=== PATIENT | female | born 1960 | race Hispanic/Latino ===

== ENCOUNTER 2016-06-21 20:33 | Inpatient (IN) | payer MEDICAID ==
[2016-06-21 20:38] VITALS: BMI 26.1
[2016-06-21] MEDS ORDERED: Naloxone 0.4 mg/ml Inj (Adult) ONE (20:49)
[2016-06-21] MEDS ORDERED: Naloxone 0.4 mg/ml Inj (Adult) IV PRN (20:51)
[2016-06-21 21:01] LABS: ABG ALLEN TEST YES; ARTERIAL BLOOD GAS HCO3 25.2 mmol/L (21-28); ARTERIAL BLOOD GAS MODE NC; ARTERIAL BLOOD GAS PH 7.45 (7.35-7.45); ARTERIAL BLOOD GAS PO2 109 mm/Hg (80-100)
[2016-06-21 21:10] LABS: BASO # 0.1 K/uL (0.0-0.2); BASO % 0.7 % (0.0-2.0); EOS # 0.2 K/uL (0.0-0.7); EOS % 2.1 % (0.0-4.0); HEMATOCRIT 42.7 % (34.0-47.0); LYMPH # 3.8 K/uL (1.0-4.3); LYMPH % 43.1 % (20.0-40.0); MEAN CELL VOLUME 98.3 fl (81.0-99.0); MEAN CORPUSCULAR HEMOGLOBIN 33.9 pg (27.0-31.0); MEAN CORPUSCULAR HGB CONC 34.5 g/dL (33.0-37.0); MEAN PLATELET VOLUME 8.6 fl (7.2-11.7); MONO # 0.8 K/uL (0.0-0.8); MONO % 9.5 % (0.0-10.0); NEUT # 3.9 K/uL (1.8-7.0); NEUT % 44.6 % (50.0-75.0); NRBC % 0.1 % (0.0-0.0); RED CELL DISTRIBUTION WIDTH 14.2 % (11.5-14.5); WHITE BLOOD COUNT 8.7 K/uL (4.8-10.8)
[2016-06-21 21:24] LABS: ALB/GLOB RATIO 1.4 (1.0-2.1); ALCOHOL SERUM < 10 mg/dl (0-10); ALKALINE PHOSPHATASE 62 U/L (38-126); ALT/SGPT 33 U/L (9-52); AST/SGOT 26 U/L (14-36); BILIRUBIN,TOTAL 0.7 mg/dl (0.2-1.3); BLOOD UREA NITROGEN 17 mg/dl (7-17); CARBON DIOXIDE 22 mmol/L (22-30); CHLORIDE 104 mmol/L (98-107); GFR AFRICAN-AMERICAN > 60; GLUCOSE,RANDOM 97 mg/dL (65-105); LIPASE 165 U/L (23-300); MAGNESIUM 2.1 MG/DL (1.6-2.3); POTASSIUM 3.3 MMOL/L (3.6-5.0); SODIUM 138 mmol/l (132-148); TOTAL PROTEIN 7.1 G/DL (6.3-8.2)
[2016-06-21 21:25] LABS: PARTIAL THROMBOPLASTIN TIME 26.8 SECONDS (23.3-32.5)
[2016-06-21 21:54] LABS: RBC URINE 1 /hpf (0-3); URINE BILIRUBIN NEGATIVE (NEGATIVE); URINE BLOOD NEGATIVE (NEGATIVE); URINE COLOR YELLOW (YELLOW); URINE GLUCOSE (UA) NEG (Normal); URINE KETONE NEGATIVE (NEGATIVE); URINE LEUKOCYTE ESTERASE NEG Leu/uL (Negative); URINE PROTEIN NEGATIVE (NEGATIVE); URINE UROBILINOGEN 0.2-1.0 mg/dL (0.2-1.0); WBC URINE 2 /hpf (0-5)
--- NOTE | 2016-06-21 21:58 | ED PDOC ---
HPI: Psych/Substance Abuse Time Seen by Provider: 06/21/16 20:38 Chief Complaint (Nursing): Substance Abuse Chief Complaint (Provider): Overdose History Per: Patient, Family (patient's daughter) Current Symptoms Are (Timing): Still Present Additional Complaint(s): 20:38 Cassidy Naranjo is a 56 year old female with a history of depression that presents to the ED after intentionally ingesting 15 tablets of 325/10 Percocet, as well as 10 tablets of Flexeril of unknown dose. Patient states that she ingested the pills because she "wanted to sleep," but her daughter reports that this was a suicide attempt, because earlier today, the patient was supposed to meet her online boyfriend and he told her he wasn't showing up. Patient's daughter also reports that the patient has a similar suicide attempt 8 years ago when an ex-boyfriend broke up with her. Patient denies any alcohol, drug use , or hallucinations. She is sleepy but conversive, and states that she feels very thirsty. Past Medical History Reviewed: Historical Data, Nursing Documentation, Vital Signs Vital Signs: Last Vital Signs Temp 98.4 F 06/21/16 20:44 Pulse 80 06/21/16 20:44 Resp 16 06/21/16 20:44 BP 145/75 06/21/16 20:44 Pulse Ox 100 06/21/16 20:44 - Medical History PMH: Arthritis Denies: Chronic Kidney Disease - Surgical History Surgical History: Appendectomy, Cholecystectomy, - Family History Family History: States: Unknown Family Hx - Immunization History Hx Tetanus Toxoid Vaccination: No Hx Influenza Vaccination: No Hx Pneumococcal Vaccination: No - Home Medications Home Medications: Ambulatory Orders Medication Instructions Recorded oxyCODONE/Acetaminophen [Percocet 1 tab PO QID PRN #15 tab 05/17/13 5/325 mg Tab] Ergocalciferol [Vitamin D] 1 tab PO QWK 09/16/14 oxyCODONE/Acetaminophen [Percocet 1 ea PO Q6 #15 tab 12/18/14 5/325 mg Tab] - Allergies Allergies/Adverse Reactions: Allergies Allergy/AdvReac Type Severity Reaction Status Date / Time No Known Allergies Allergy Verified 09/16/14 09:23 Review of Systems ROS Statement: Except As Marked, All Systems Reviewed And Found Negative ( however it may be unreliable due to intoxication with sedatives) Constitutional: Positive for: Other (Thirst) Gastrointestinal: Positive for: Nausea. Negative for: Vomiting, Abdominal Pain Neurological: Positive for: Dizziness. Negative for: Numbness Psych: Positive for: Anxiety, Depression, Suicidal ideation Physical Exam - Reviewed Nursing Documentation Reviewed: Yes Vital Signs Reviewed: Yes - Physical Exam Appears: Positive for: No Acute Distress (sleepy, but easily arouable) Head Exam: Positive for: ATRAUMATIC, NORMOCEPHALIC Skin: Positive for: Warm, Dry Eye Exam: Positive for: EOMI, PERRL ENT: Positive for: Pharynx Is (clear), Other (very dry mucous membranes) Neck: Positive for: Painless ROM, Supple Cardiovascular/Chest: Negative for: Regular Rate, Rhythm (heart rate is irregular; rate is bigeminy), Murmur Respiratory: Negative for: Normal Breath Sounds (lungs clear, but shallow breath sounds), Wheezing Gastrointestinal/Abdominal: Positive for: Soft. Negative for: Tenderness, Distended, Guarding Back: Positive for: Normal Inspection. Negative for: Vertebral Tenderness Extremity: Positive for: Normal ROM. Negative for: Pedal Edema Lymphatic: Negative for: Adenopathy Neurologic/Psych: Positive for: Alert (sleepy but easily arousable, conversive) , Oriented, Other (speech is slightly slurred). Negative for: Motor/Sensory Deficits - Laboratory Results Result Diagrams: 06/22/16 05:00 06/22/16 05:00 - ECG O2 Sat by Pulse Oximetry: 100 (RA) Pulse Ox Interpretation: Normal - Radiology X-Ray: Interpreted by Me X-Ray Interpretation: No Acute Disease - Critical Care Total Time (In Min): 30 Documented Critical Care: Time excludes all time spent performint seperately billable procedures Medical Decision Making Medical Decision Makin:38 Initial Impression: Overdose of Acetaminophen, Opioid, and Sedative Initial Plan: * Type and Screen * EKG * Chest X-Ray * Urine Drug Screen * Urinalysis * Glucose, Blood, POC * Adams Catheter * Vital Signs * Potassium Chloride 100 mL * Narcan 0.4 mg IV * Reevaluation Initial EKG demonstrated sinus with frequent PVCs in bigeminy, but then Discussed with [facility]ison Control, patient will be observed on monitor and acetaminophen bp recommended four hours post-ingestion. Small amount of Narcan as needed for respiratory depression. 21:10 Labs unremarkable except for acetaminophen of 59 and low potassium. Will call Dr Ross to admit to medical service. Scribe Attestation: Documented by Clarissa Valenzuela, acting as a scribe for Priscilla Bosch MD. Provider Scribe Attestation: All medical record entries made by the Scribe were at my direction and personally dictated by me. I have reviewed the chart and agree that the record accurately reflects my personal performance of the history, physical exam, medical decision making, and the department course for this patient. I have also personally directed, reviewed, and agree with the discharge instructions and disposition. Disposition - Clinical Impression Clinical Impression: Acetaminophen overdose, Sedative overdose, Depression - Disposition Disposition Time: 20:45 Condition: FAIR - Pt Status Changed To: Hospital Disposition Of: Inpatient - Admit Certification Admit to Inpatient:: After my assessment, the patient will require hospitalization for at least two midnights. This is because of the severity of symptoms shown, intensity of services needed, and/or the medical risk in this patient being treated as an outpatient. - POA Present On Arrival: None
[2016-06-21] MEDS: Potassium CL 10mEq/100ml 100 ML IVPB SCH (22:26)
[2016-06-22] MEDS: Potassium CL 10mEq/100ml 100 ML IVPB SCH (01:39)
[2016-06-22 07:06] LABS: HEMATOCRIT 39.7 % (34.0-47.0); MEAN CELL VOLUME 100.1 fl (81.0-99.0); MEAN CORPUSCULAR HEMOGLOBIN 33.9 pg (27.0-31.0); MEAN CORPUSCULAR HGB CONC 33.8 g/dL (33.0-37.0); RED CELL DISTRIBUTION WIDTH 14.6 % (11.5-14.5); WHITE BLOOD COUNT 6.8 K/uL (4.8-10.8)
--- NOTE | 2016-06-22 07:06 | RAD ---
HISTORY: overdose COMPARISON: No prior. FINDINGS: LUNGS: No active pulmonary disease. PLEURA: No significant pleural effusion identified, no pneumothorax apparent. CARDIOVASCULAR: Normal. OSSEOUS STRUCTURES: No significant abnormalities. VISUALIZED UPPER ABDOMEN: Normal. OTHER FINDINGS: None. IMPRESSION: No active disease.
[2016-06-22 08:00] LABS: ALB/GLOB RATIO 1.3 (1.0-2.1); ALKALINE PHOSPHATASE 55 U/L (38-126); ALT/SGPT 35 U/L (9-52); AST/SGOT 67 U/L (14-36); BILIRUBIN,TOTAL 0.6 mg/dl (0.2-1.3); BLOOD UREA NITROGEN 12 mg/dl (7-17); CALCIUM 8.6 mg/dL (8.4-10.2); CARBON DIOXIDE 23 mmol/L (22-30); CHLORIDE 110 mmol/L (98-107); GFR AFRICAN-AMERICAN > 60; GLUCOSE,RANDOM 81 mg/dL (65-105); POTASSIUM 3.9 MMOL/L (3.6-5.0); SODIUM 141 mmol/l (132-148); TOTAL PROTEIN 5.9 G/DL (6.3-8.2)
--- NOTE | 2016-06-22 11:21 | CARD ---
APPROVED REPORT EKG Measurement Heart [id number] <Conclusion> Sinus rhythm with frequent premature ventricular complexes in a pattern of bigeminy Otherwise normal ECG
--- NOTE | 2016-06-22 13:23 | CP.PCM.CON ---
History of Present Illness - History of Present Illness History of Present Illness: psychiatry consult ordered by dr kuhn/darius reason: suicide attempt cc: i am embarrased and will never do it again hpi: pt reports no psychiatric history or treatment. she reports she made "a stupid decision" after a conflict with an online bf she had never meet- apparently he was supposed to meet her and didn't. pt took her percocet she is prescribed for her torn meniscus. she states wanted to in that moment and then changed her mind and got scared. she called her daughter who called to have pt brought to hospital. pt denies leaving a note. states she does not want to kill herself. states she has not been depressed. states she works, goes to the gym and is close to her family. she is willing to accept outpatient treatment. she is willing to stay in medical hospital for medical treatment. she does not want to sign into inpt treatment. 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 went to detox/ rehab and has been sober. states she has the percocet for knee injury. she denies use of alcohol or other illicit substances. smokes 20 cigarettes daily. social: born and raised in [facility]. has a 33 yo daughter who lives nearby. she was never . denies any physical/sexual abuse. 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 medical: knee injury, sp tylenol od mse: alert, oriented x 3. mood is anxious. affect appropriate. speech is with an irritated tone, but linear and appropriate rate and volume. thoughts are discharge focused. pt is denying any suicidal or homicidal thoughts/plans or intent currently. denies any auditory or visual hallucinations. memory is intact. fair i/j. assessment: impulse control disorder unspecified r/o depression unspecified recommendation: met with pts daughter who does not feel pt is a danger to self as she will be with the pt and pt will be staying with her uncle for the next few days pt does not want treatment and has the support of her family she does not appear to be suffering from a severe mood/thought disorder she is willing to engage in outpt therapy to explore some issues that may have lead to the attempt when medically cleared she can be discharged from a psychiatric standpoint she does not need 1:1 supervision at this time. Past Patient History - Past Medical History & Family History Past Medical History?: No - Past Social History Smoking Status: Never Smoked - CARDIAC Hx Cardiac Disorders: No - PULMONARY Hx Respiratory Disorders: No - NEUROLOGICAL Hx Neurological Disorder: No - HEENT Hx HEENT Problems: No - RENAL Hx Chronic Kidney Disease: No - ENDOCRINE/METABOLIC Hx Endocrine Disorders: No - HEMATOLOGICAL/ONCOLOGICAL Hx Blood Disorders: No - INTEGUMENTARY Hx Dermatological Problems: No - MUSCULOSKELETAL/RHEUMATOLOGICAL Hx Falls: No - GASTROINTESTINAL Hx Gastrointestinal Disorders: No - GENITOURINARY/GYNECOLOGICAL Hx Genitourinary Disorders: No - PSYCHIATRIC Hx Substance Use: No - SURGICAL HISTORY Hx Surgeries: Yes Hx Appendectomy: Yes Hx Section: Yes Hx Cholecystectomy: Yes - ANESTHESIA Hx Anesthesia: Yes Hx Anesthesia Reactions: No Hx Malignant Hyperthermia: No Meds Allergies/Adverse Reactions: Allergies Allergy/AdvReac Type Severity Reaction Status Date / Time No Known Allergies Allergy Verified 09/16/14 09:23 - Medications Medications: Current Medications Naloxone HCl (Narcan) 0.4 mg IV PRN PRN PRN Reason: Respiratory failure Results - Vital Signs Recent Vital Signs: Last Vital Signs Temp 98.4 F 06/22/16 12:34 Pulse 57 L 06/22/16 12:34 Resp 20 06/22/16 12:34 BP 124/72 06/22/16 12:34 Pulse Ox 97 06/22/16 12:34 - Labs Result Diagrams: 06/22/16 05:00 06/22/16 05:00 Labs: Laboratory Results - last 24 hr 06/21/16 06/22/16 06/22/16 23:20 05:00 05:00 WBC 6.8 RBC 3.96 Hgb 13.4 Hct 39.7 MCV 100.1 H MCH 33.9 H MCHC 33.8 RDW 14.6 H Plt Count 177 Sodium 141 Potassium 3.9 Chloride 110 H Carbon Dioxide 23 Anion Gap 12 BUN 12 Creatinine 0.8 Est GFR ( Amer) > 60 Est GFR (Non-Af Amer) > 60 Random Glucose 81 Calcium 8.6 Total Bilirubin 0.6 AST 67 H D ALT 35 Alkaline Phosphatase 55 Total Protein 5.9 L Albumin 3.3 L Globulin 2.6 Albumin/Globulin Ratio 1.3 Acetaminophen 21.0
--- NOTE | 2016-06-22 14:20 | CP.PCM.HP ---
History of Present Illness - History of Present Illness History of Present Illness: CC: Suicide attempt. 56 y/o F, brought to ER [facility] by EMS for overdose of Percocet and Flexeril, associated to suicidal attempt. Pt reports, she was supposed to meet with a online boyfriend that she never meet but she didn't. After that happened, she had a bad decision to consume all these pills with intention to , also stated she was trying to sleep, but right after she get scare and called her daughter who call EMS and Pt was bought to hospital x urgent Tx. Worsening symptom: Depression. Pt denied to be under Psychiatric Tx. As per daughter a similar episode of suicide attempt occurred 8 yrs ago when an ex-boyfriend broke up with her. Pt denied: Fever, chills, v/d, abdominal pain, urinary symptoms, CP, headache, syncope, SOB. PMHx: Depression, Hx of Heroine dependence x 30 yrs, went to detox/rehab and has been sober. EKG shows: Sinus rhythm with PVC CXR: No active disease. Present on Admission - Present on Admission Any Indicators Present on Admission: No Review of Systems - Constitutional Constitutional: Other (negative) - EENT Eyes: Requires Corrective Lenses Ears: Other (negative) Nose/Mouth/Throat: Other (thirsty) - Cardiovascular Cardiovascular: Other (negative) - Respiratory Respiratory: Other (negative) - Gastrointestinal Gastrointestinal: Nausea - Genitourinary Genitourinary: Other (negative) - Musculoskeletal Musculoskeletal: Other (negative) - Integumentary Integumentary: Other (negative) - Neurological Neurological: Other (negative) - Psychiatric Psychiatric: Depression, Suicidal Ideation - Endocrine Endocrine: Other (negative) - Hematologic/Lymphatic Hematologic: Other (negative) Past Patient History - Past Medical History & Family History Past Medical History?: No Pertinent Family History: Unknown - Past Social History Smoking Status: Heavy Smoker > 10 Cigarettes Daily Alcohol: None Drugs: Denies, Other (Hx of Heroine dependence. after detox/rehab has been sober.) - CARDIAC Hx Cardiac Disorders: No - PULMONARY Hx Respiratory Disorders: No - NEUROLOGICAL Hx Neurological Disorder: No - HEENT Hx HEENT Problems: No - RENAL Hx Chronic Kidney Disease: No - ENDOCRINE/METABOLIC Hx Endocrine Disorders: No - HEMATOLOGICAL/ONCOLOGICAL Hx Blood Disorders: No - INTEGUMENTARY Hx Dermatological Problems: No - MUSCULOSKELETAL/RHEUMATOLOGICAL Hx Musculoskeletal Disorders: No Hx Falls: No - GASTROINTESTINAL Hx Gastrointestinal Disorders: No - GENITOURINARY/GYNECOLOGICAL Hx Genitourinary Disorders: No - PSYCHIATRIC Hx Psychophysiologic Disorder: Yes Hx Depression: Yes Hx Substance Use: No - SURGICAL HISTORY Hx Surgeries: Yes Hx Appendectomy: Yes Hx Section: Yes Hx Cholecystectomy: Yes - ANESTHESIA Hx Anesthesia: Yes Hx Anesthesia Reactions: No Hx Malignant Hyperthermia: No Meds Allergies/Adverse Reactions: Allergies Allergy/AdvReac Type Severity Reaction Status Date / Time No Known Allergies Allergy Verified 09/16/14 09:23 Physical Exam - Constitutional Appears: No Acute Distress - Head Exam Head Exam: NORMAL INSPECTION - Eye Exam Eye Exam: PERRL - ENT Exam ENT Exam: Normal Oropharynx - Neck Exam Neck exam: Positive for: Normal Inspection - Respiratory Exam Respiratory Exam: NORMAL BREATHING PATTERN - Cardiovascular Exam Cardiovascular Exam: REGULAR RHYTHM - GI/Abdominal Exam GI & Abdominal Exam: Normal Bowel Sounds, Soft - Extremities Exam Extremities exam: Positive for: normal inspection - Back Exam Back exam: NORMAL INSPECTION - Neurological Exam Neurological exam: Alert, Oriented x3 Additional comments: No motor sensory deficit. - Psychiatric Exam Psychiatric exam: Normal Mood - Skin Skin Exam: Normal Color, Warm Results - Vital Signs Recent Vital Signs: Last Vital Signs Temp 98.4 F 06/22/16 12:34 Pulse 57 L 06/22/16 12:34 Resp 20 06/22/16 12:34 BP 124/72 06/22/16 12:34 Pulse Ox 97 06/22/16 12:34 reviewed J.PMikhail - Labs Result Diagrams: 06/22/16 05:00 06/22/16 05:00 Labs: Laboratory Results - last 24 hr 06/21/16 06/22/16 06/22/16 23:20 05:00 05:00 WBC 6.8 RBC 3.96 Hgb 13.4 Hct 39.7 MCV 100.1 H MCH 33.9 H MCHC 33.8 RDW 14.6 H Plt Count 177 Sodium 141 Potassium 3.9 Chloride 110 H Carbon Dioxide 23 Anion Gap 12 BUN 12 Creatinine 0.8 Est GFR ( Amer) > 60 Est GFR (Non-Af Amer) > 60 Random Glucose 81 Calcium 8.6 Total Bilirubin 0.6 AST 67 H D ALT 35 Alkaline Phosphatase 55 Total Protein 5.9 L Albumin 3.3 L Globulin 2.6 Albumin/Globulin Ratio 1.3 Acetaminophen 21.0 reviewed J.P. - EKG Data EKG comments: reviewed J.P. - Imaging and Cardiology Chest x-ray Status: Report reviewed by me (Yuri) Assessment & Plan (1) Acetaminophen overdose Status: Acute Priority: High Comment: Flexeril abuse. (2) Opiate abuse, episodic Status: Acute Priority: High - Assessment and Plan (Free Text) Plan: Pt was seen and cleared by Psychiatric standpoint, not need for 1:1 observation , Willing to accept out Pt Tx, does not want to sign into Tx. Continue detox Tx. - Date & Time Date: 06/22/16 Time: 12:00
[2016-06-22 15:42] LABS: ALT/SGPT 37 U/L (9-52); AST/SGOT 29 U/L (14-36)
[2016-06-22 16:00] VITALS: BP 149/80; PULSE 66; RESP 18; TEMP 98
[2016-06-22 22:37] VITALS: O2SAT 100
== END 2016-06-22 18:10 | disposition left against medical advice (07) | DRG 449 ==
LOC: H.ER 20:33 → H.ERHOLD 21:58 → H.TEL 23:42
PROVIDERS: ADMIT Internal Medicine Pulmonary Disease; ATTEND Internal Medicine Pulmonary Disease
DX: T48.1X2A Poisoning by skeletal muscle relaxants [neuromuscular blocking agents], intentional self-harm, initial encounter (principal); F11.10 Opioid abuse, uncomplicated; F32.9 Major depressive disorder, single episode, unspecified; T39.1X2A Poisoning by 4-Aminophenol derivatives, intentional self-harm, initial encounter; Y92.9 Unspecified place or not applicable; F17.210 Nicotine dependence, cigarettes, uncomplicated; F63.9 Impulse disorder, unspecified; Z90.49 Acquired absence of other specified parts of digestive tract; Z91.5 Personal history of self-harm

== ENCOUNTER 2016-11-13 20:09 | Emergency (ER) | payer MEDICAID ==
[2016-11-13 20:10] VITALS: BMI 26.1
[2016-11-13 20:54] VITALS: BP 160/80; PULSE 69; RESP 16; TEMP 98.2; O2SAT 100
--- NOTE | 2016-11-13 21:43 | ED PDOC ---
HPI: Female Pain Time Seen by Provider: 11/13/16 21:08 Chief Complaint (Nursing): Female Genitourinary Chief Complaint (Provider): Blood in urine on/off for 1 week History Per: Patient History/Exam Limitations: no limitations Onset/Duration Of Symptoms: Days Current Symptoms Are (Timing): Intermittent Episodes Severity: None Additional Complaint(s): Pt states 3 weeks ago she had intercourse for the first time in 7 years. Pt states she had some vaginal bleeding. PT has intercourse several more times over the next 2 weeks. Pt states that she came home from visiting her fiance 1 weeks ago and since has been having intermittent blood in her urine. She states she has been wearing a pad but there has not been blood in it. Pt also reports mild suprapubic pain. No vaginal discharge. Past Medical History Reviewed: Historical Data, Nursing Documentation, Vital Signs Vital Signs: Last Vital Signs Temp 98.2 F 11/13/16 20:50 Pulse 69 11/13/16 20:50 Resp 16 11/13/16 20:50 BP 160/80 H 11/13/16 20:50 Pulse Ox 100 11/13/16 20:50 - Medical History PMH: Arthritis, Depression Denies: Chronic Kidney Disease - Surgical History Surgical History: Appendectomy, Cholecystectomy, - Family History Family History: States: Unknown Family Hx - Living Arrangements Living Arrangements: With Family - Social History Current smoker - smoking cessation education provided: Yes - Immunization History Hx Tetanus Toxoid Vaccination: No Hx Influenza Vaccination: No Hx Pneumococcal Vaccination: No - Home Medications Home Medications: Ambulatory Orders Medication Instructions Recorded oxyCODONE/Acetaminophen [Percocet 1 tab PO QID PRN #15 tab 05/17/13 5/325 mg Tab] Ergocalciferol [Vitamin D] 1 tab PO QWK 09/16/14 oxyCODONE/Acetaminophen [Percocet 1 ea PO Q6 #15 tab 12/18/14 5/325 mg Tab] Ciprofloxacin [Cipro] 500 mg PO BID #10 tab 11/13/16 - Allergies Allergies/Adverse Reactions: Allergies Allergy/AdvReac Type Severity Reaction Status Date / Time No Known Allergies Allergy Verified 11/13/16 20:50 Review of Systems ROS Statement: Except As Marked, All Systems Reviewed And Found Negative Constitutional: Negative for: Fever, Sweats Gastrointestinal: Positive for: Abdominal Pain. Negative for: Nausea, Vomiting Genitourinary Female: Positive for: Hematuria, Vaginal Bleeding. Negative for: Dysuria, Frequency Physical Exam - Reviewed Nursing Documentation Reviewed: Yes Vital Signs Reviewed: Yes - Physical Exam Appears: Positive for: Well, Non-toxic, No Acute Distress Head Exam: Positive for: ATRAUMATIC, NORMAL INSPECTION, NORMOCEPHALIC Skin: Positive for: Normal Color, Warm, DRY Eye Exam: Positive for: Normal appearance ENT: Positive for: Normal ENT Inspection Neck: Positive for: Normal, Painless ROM Cardiovascular/Chest: Positive for: Regular Rate, Rhythm Respiratory: Positive for: CNT, Normal Breath Sounds Gastrointestinal/Abdominal: Positive for: Normal Exam, Bowel Sounds, Soft Back: Positive for: Normal Inspection Extremity: Positive for: Normal ROM Neurologic/Psych: Positive for: Alert, Oriented - ECG O2 Sat by Pulse Oximetry: 100 Disposition - Clinical Impression Clinical Impression: Cystitis - Patient ED Disposition Is Patient to be Admitted: No Counseled Patient/Family Regarding: Diagnosis, Need For Followup, Rx Given - Disposition Referrals: Charles Love MD [Medical Doctor] - Disposition: Routine/Home Disposition Time: 22:34 Condition: GOOD Additional Instructions: Please follow-up with urology is symptoms continue. Prescriptions: Ciprofloxacin [Cipro] 500 mg PO BID #10 tab Instructions: Urinary Tract Infection in Women (ED) Forms: [employer] (Mongolian)
[2016-11-13 21:52] LABS: RBC URINE 3556 /hpf (0-3); URINE BACTERIA RARE (<OCC); URINE BILIRUBIN NEGATIVE (NEGATIVE); URINE BLOOD LARGE (NEGATIVE); URINE COLOR YELLOW (YELLOW); URINE GLUCOSE (UA) NEG (Normal); URINE KETONE NEGATIVE (NEGATIVE); URINE LEUKOCYTE ESTERASE TRACE Leu/uL (Negative); URINE PROTEIN 100 mg/dL (NEGATIVE); URINE UROBILINOGEN 0.2-1.0 mg/dL (0.2-1.0); WBC URINE 126 /hpf (0-5)
== END 2016-11-13 22:50 | disposition home or self-care (01) ==
LOC: H.ER 20:09
DX: N30.90 Cystitis, unspecified without hematuria (principal); F32.9 Major depressive disorder, single episode, unspecified

== ENCOUNTER 2018-07-12 17:11 | Emergency (ER) | payer MEDICAID ==
[2018-07-12 17:11] VITALS: BMI 26.1
[2018-07-12 17:20] VITALS: TEMP 98.6; O2SAT 98
[2018-07-12] MEDS ORDERED: Oxycodone/Acetaminophen 5/325 mg Tab PO STA (17:37)
--- NOTE | 2018-07-12 17:44 | ED PDOC ---
Upper Extremity Pain/Injury Time Seen by Provider: 07/12/18 17:31 Chief Complaint (Nursing): Upper Extremity Problem/Injury Chief Complaint (Provider): Upper Extremity Problem/Injury History Per: Patient History/Exam Limitations: no limitations Onset/Duration Of Symptoms: Days Current Symptoms Are (Timing): Still Present Additional Complaint(s): 58 y/o female with no significant PMHx presents to the ED for evaluation of right hand pain radiating up the right arm, onset four days ago. Patient reports pain began after repeatedly folding refrigerator bags of food items four days ago. Patient notes she has since noticed swelling and excruciating pain to the 2nd and 3rd digits. Patient describes of additionally experiencing "pins and needles" to those two digits. Patient reports of taking Advil for pain with no relief. PMD: no provider Past Medical History Reviewed: Historical Data, Nursing Documentation, Vital Signs Vital Signs: Last Vital Signs Temp 98.6 F 07/12/18 17:17 Pulse 74 07/12/18 17:17 Resp 16 07/12/18 17:17 BP 110/63 07/12/18 17:17 Pulse Ox 98 07/12/18 17:17 Primary Care Provider: FAMILY PROVIDER,NO - Medical History PMH: Arthritis, Depression Denies: Chronic Kidney Disease - Surgical History Surgical History: Appendectomy, Cholecystectomy, - Family History Family History: States: Unknown Family Hx - Living Arrangements Living Arrangements: With Family - Immunization History Hx Tetanus Toxoid Vaccination: No Hx Influenza Vaccination: No Hx Pneumococcal Vaccination: No - Home Medications Home Medications: Ambulatory Orders Medication Instructions Recorded oxyCODONE/Acetaminophen [Percocet 1 tab PO QID PRN #15 tab 05/17/13 5/325 mg Tab] Ergocalciferol [Vitamin D] 1 tab PO QWK 09/16/14 oxyCODONE/Acetaminophen [Percocet 1 ea PO Q6 #15 tab 12/18/14 5/325 mg Tab] Ciprofloxacin [Cipro] 500 mg PO BID #10 tab 11/13/16 Acetaminophen with Codeine 1 tab PO Q6H PRN #10 tab 07/12/18 [Tylenol with Codeine No. 3 300 mg-30 mg] - Allergies Allergies/Adverse Reactions: Allergies Allergy/AdvReac Type Severity Reaction Status Date / Time No Known Allergies Allergy Verified 11/13/16 20:50 Review of Systems ROS Statement: Except As Marked, All Systems Reviewed And Found Negative Musculoskeletal: Positive for: Hand Pain Physical Exam - Reviewed Nursing Documentation Reviewed: Yes Vital Signs Reviewed: Yes - Physical Exam Appears: Positive for: Uncomfortable Extremity: Positive for: Normal ROM, Tenderness (Tenderness to palpation to the right 2nd and 3rd MCP. ), Other (neurovascularly intact) - ECG O2 Sat by Pulse Oximetry: 98 (RA) Pulse Ox Interpretation: Normal Medical Decision Making Medical Decision Making: Time: 1737 Impression: Joint Pain Plan: -- Percocet 5/325 mg 1 tab PO -- Hand Right 3 Views XR Accession No. 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 HISTORY: 2nd/3rd MCP Pain. No history of recent/ related trauma provided. COMPARISON: 06/03/2010 right hand radiographs TECHNIQUE: 3 views obtained. FINDINGS: BONES: Normal. No fracture. JOINTS: Osteoarthritic change involving proximal and distal interphalangeal joints. SOFT TISSUES: Normal. OTHER FINDINGS: None. IMPRESSION: No acute findings related to/ accounting for the clinical presentation. Stable osteoarthritic change. Scribe Attestation: Documented by Savana Dimas, acting as a scribe Jose Rodney MD. Provider Scribe Attestation: All medical record entries made by the Scribe were at my direction and personally dictated by me. I have reviewed the chart and agree that the record accurately reflects my personal performance of the history, physical exam, medical decision making, and the department course for this patient. I have also personally directed, reviewed, and agree with the discharge instructions and disposition. Disposition - Clinical Impression Clinical Impression: Arthralgia of hand - Disposition Disposition: Routine/Home Disposition Time: 18:20 Condition: STABLE Additional Instructions: FOLLOW-UP WITH PMD WITHIN 2 DAYS FOR REEVALUATION. Prescriptions: Acetaminophen with Codeine [Tylenol with Codeine No. 3 300 mg-30 mg] 1 tab PO Q6H PRN #10 tab PRN Reason: Pain, Severe (8-10) Instructions: Hand Pain Forms: [facility] [employer] (Vietnamese)
[2018-07-12] MEDS ORDERED: Oxycodone/Acetaminophen 5/325 mg Tab ONE (18:00)
[2018-07-12 18:41] VITALS: BP 110/70; PULSE 70; RESP 18
--- NOTE | 2018-07-13 09:40 | RAD ---
PROCEDURE: Right Hand Radiographs. HISTORY: 2nd/3rd MCP Pain. No history of recent/ related trauma provided. COMPARISON: 06/03/2010 right hand radiographs TECHNIQUE: 3 views obtained. FINDINGS: BONES: Normal. No fracture. JOINTS: Osteoarthritic change involving proximal and distal interphalangeal joints. SOFT TISSUES: Normal. OTHER FINDINGS: None. IMPRESSION: No acute findings related to/ accounting for the clinical presentation. Stable osteoarthritic change.
== END 2018-07-12 18:42 | disposition home or self-care (01) ==
LOC: H.ER 17:11
DX: M25.541 Pain in joints of right hand (principal); Z86.59 Personal history of other mental and behavioral disorders